=== PATIENT | male | born 1965 | race Caucasian/White ===

== ENCOUNTER 2021-03-22 13:26 | Outpatient (REF) | payer BC, SELFPAY ==
[2021-03-22 21:54] LABS: Hemoglobin A1C 5.2 % (<5.7)
[2021-03-22 21:57] LABS: Anion Gap 9.5 mmol/L (3-11); BUN 9 mg/dL (7-18); CO2 27.5 mmol/L (21.0-32.0); CREATININE 0.9 mg/dL (0.70-1.30); Calcium 9.2 mg/dL (8.5-10.1); Calculated LDL 168 mg/dL (<100); Chloride 104 mmol/L (98-107); Cholesterol 254 mg/dL (<200); Glucose 130 mg/dL (74-106); HDL Cholesterol 64 mg/dL (40-60); Sodium 141 mmol/L (136-145); Triglyceride 111 mg/dL (<150)
[2021-03-26 10:38] LABS: Hepatitis C Ab w Rflx HCV PCR Negative (Negative)
== END 2021-03-22 13:27 | disposition home or self-care (01) ==
LOC: LBN 13:26
PROVIDERS: PCP General Practice; Visit Provider Physician Assistant Medical
DX: I10 Essential (primary) hypertension (principal); Z13.220 Encounter for screening for lipoid disorders; Z11.59 Encounter for screening for other viral diseases; Z13.1 Encounter for screening for diabetes mellitus
CPT/HCPCS: 80048; 80061; 86803; 83036